=== PATIENT | female | born 1930 | race Caucasian/White ===

== ENCOUNTER → 2017-06-03 | Outpatient (CLI) | payer MEDICARE, BC | END | disposition home or self-care (01) | DX: R06.02 Shortness of breath (principal); I35.1 Nonrheumatic aortic (valve) insufficiency; I07.1 Rheumatic tricuspid insufficiency ==

== ENCOUNTER → 2017-06-05 | Outpatient (CLI) | payer MEDICARE, BC | END | disposition home or self-care (01) | LOC: RAD.S 10:35 | DX: R06.02 Shortness of breath (principal); S22.059A Unspecified fracture of T5-T6 vertebra, initial encounter for closed fracture; I50.9 Heart failure, unspecified; I47.1 Supraventricular tachycardia; R42 Dizziness and giddiness; R06.00 Dyspnea, unspecified; J43.9 Emphysema, unspecified; J47.9 Bronchiectasis, uncomplicated ==